=== PATIENT | female | born 1980 | race Caucasian/White ===

== ENCOUNTER → 2021-01-24 | Emergency (ER) | payer BC ==
[~2021-01-24] VITALS: Ht 152.4 cm; Wt 59.7 kg
[~2021-01-24] MED LIST: DOXY-1 PO
[2021-01-24 11:36] VITALS: BP 121/84
== END | disposition left against medical advice (07) ==
LOC: ER 11:17
DX: J34.0 Abscess, furuncle and carbuncle of nose (principal); J32.9 Chronic sinusitis, unspecified; J34.89 Other specified disorders of nose and nasal sinuses; Z79.2 Long term (current) use of antibiotics
CPT/HCPCS: 10160; 99284

== ENCOUNTER 2024-10-01 20:27 | Emergency (ER) | payer BC ==
[~2024-10-01] VITALS: Ht 165.1 cm; Wt 61.4 kg
[2024-10-01 21:18] LABS: BASOPHILS # (AUTO) 0.1 X10'3 (0-0.2); BASOPHILS % (AUTO) 0.7 % (0-1); EOSINOPHILS # (AUTO) 0.1 X10'3 (0-0.9); EOSINOPHILS % (AUTO) 0.9 % (0-6); HEMATOCRIT 39.8 % (35.0-45.0); HEMOGLOBIN 13.4 g/dl (12.0-16.0); LYMPHOCYTES # (AUTO) 3.1 X10'3 (1.1-4.8); LYMPHOCYTES % (AUTO) 32.7 % (21-51); MEAN CORPUSCULAR HEMOGLOBIN 29.9 PG (27.0-31.0); MEAN CORPUSCULAR HGB CONC 33.7 g/dL (33.0-36.5); MEAN CORPUSCULAR VOLUME 88.7 FL (78-98); MEAN PLATELET VOLUME 9.1 FL (7.4-10.4); MONOCYTES # (AUTO) 0.6 X10'3 (0-0.9); MONOCYTES % (AUTO) 6.7 % (2-12); NEUTROPHILS # (AUTO) 5.7 X10'3 (1.8-7.7); PLATELET COUNT 187 X10'3 (140-440); RED BLOOD COUNT 4.49 X10'6 (4.20-5.60); RED CELL DISTRIBUTION WIDTH 13.4 % (11.5-14.5); WHITE BLOOD COUNT 9.6 X10'3 (4.5-11.0)
[2024-10-01] MEDS ORDERED: PROP10TA10 PO (21:31)
--- NOTE | 2024-10-01 21:31 | Physician Documentation ---
History of Present Illness ~ Chief Complaint: General Stated Complaint: "NOT FEELING RIGHT" Time Seen by MD: 20:48 Mode of Arrival: POV HPI This is a 44-year-old female with a history of tachycardia presents to the ED with ongoing concerns. She states she has been seen at 's office and evaluated for tachycardia. He was prescribed propranolol to help with her symptoms. However she says that she recently had a child and has been afraid to take the medication. She also adds that she was reassured at the office sided safe to take. She adds that she does not want to take a lot of medication. She also states that she is aware that she may have anxiety. Or concerns or revolving around the fact that she has a family history of cardiac problems. She however has never been diagnosed with a any true cardiac problems that required ongoing treat Day of Onset: Oct 01, 2024 Medication Reconciliation Allergies: Uncoded Allergies: EYE GTTS: ABX WITH STEROID (Allergy, Unknown, BLURED VISION AND HIVES, 01/24/21) Scheduled Propranolol Hcl* (Inderal*), 1 TAB PO Q12H Review of Systems All Other Systems at this time: Reviewed and Negative ROS As stated above in the HPI, otherwise all systems are reviewed and negative. Physical Exam Vital Signs: Temperature: 98.7, Source: Oral, Heart Rate: 78, Respiratory Rate: 16, BP: 155/88, Pulse Oximetry: 99, Weight: 61.360 Physical Exam General: Alert, no apparent distress. Respiratory: Lungs clear, no respiratory distress. Chest: No accessory muscle use. Neurologic: Oriented x4. Psychiatric: Normal mood and affect. Skin: Normal color, warm and dry. No edema, no ecchymosis. Progress Results/Orders Results/Orders Completed Orders - CHUY CHILEL NP Urinalysis, Cult If Indicated (10/01/24 20:52) Hcg, Ur Ql (10/01/24 20:52) Cbc/Diff (10/01/24 20:52) BMP (10/01/24 20:52) Lipase (10/01/24 20:52) CMP (10/01/24 20:52) Vital Signs 10/01/24 10/01/24 10/01/24 20:34 20:50 21:51 Temp 98.7 98.5 Pulse 78 82 Resp 16 16 16 B/P (MAP) 155/88 133/69 Pulse Ox 99 99 Laboratory Tests Test 10/01/24 21:09 10/01/24 21:40 White Blood Count 9.6 Red Blood Count 4.49 Hemoglobin 13.4 Hematocrit 39.8 Mean Corpuscular Volume 88.7 Mean Corpuscular Hemoglobin 29.9 Mean Corpuscular Hemoglobin Concent 33.7 Red Cell Distribution Width 13.4 Platelet Count 187 Mean Platelet Volume 9.1 Neutrophils (%) (Auto) 59.0 Lymphocytes (%) (Auto) 32.7 Monocytes (%) (Auto) 6.7 Eosinophils (%) (Auto) 0.9 Basophils (%) (Auto) 0.7 Neutrophils # (Auto) 5.7 Lymphocytes # (Auto) 3.1 Monocytes # (Auto) 0.6 Eosinophils # (Auto) 0.1 Basophils # (Auto) 0.1 CBC Comment Sodium Level 136 Potassium Level 3.5 Chloride Level 102 Carbon Dioxide Level 29.6 Anion Gap 4 L Blood Urea Nitrogen 14 Creatinine 1.02 H Estimated GFR/1.73 m2 59 BUN/Creatinine Ratio 13.7 Glucose Level 96 Calcium Level 8.8 Total Bilirubin 0.5 Aspartate Amino Transf (AST/SGOT) 15 Alanine Aminotransferase (ALT/SGPT) 25 Alkaline Phosphatase 68 Total Protein 6.8 Albumin 3.6 Globulin 3.2 Albumin/Globulin Ratio 1.1 Lipase 50 Chemistry Comments Urine Specimen Description Cln catch midstream Urine Color Yellow Urine Clarity Clear Urine pH 7.0 Urine Specific [place] 1.010 Urine Protein Negative Urine Glucose (UA) Negative Urine Ketones Negative Urine Occult Blood Negative Urine Nitrite Negative Urine Bilirubin Negative Urine Urobilinogen 0.2 Urine Leukocyte Esterase Negative Urine Culture Indicated Not ind Volume Urine Centrifuged 10 ml Urine HCG, Qualitative Negative Urine Comment Medical Decision Making Findings This 44-year-old presents with signs or symptoms of anxiety and depression. Had discussed these symptoms with the patient and explained that the palpitation she occasionally feels,can lead to increased anxiety. Discussed the possibility of going on an SSRI to help with her psychiatric symptoms. She did not visually present interested in this notion I suggested exercise and to follow up with her primary care at [facility] I also told her I would represcribed her some propranolol Differential Dx:Considerations: Include: angina / HI, atrial dysrhythmia, atrial fibrillation, atrial flutter, MAT, PACs, PSVT, sinus tachycardia, WPW, 1st degree AV block, 2nd degree AVB-type 1, 2nd degree AVB-type 2, 3rd degree AV block, PVCs, torsades de pointes, ventricular fibrillation, ventricular tachycardia, other Departure Disposition: 01 HOME / SELF CARE / HOMELESS Impression: Primary Impression: Anxiety about health Condition: Stable Discharge Instructions: Generalized Anxiety Disorder, Adult Referrals: NO PRIMARY CARE PROVIDER (PCP) Prescriptions Propranolol Hcl* (Inderal*) 10 Mg Tablet 1 TAB PO Q12H for 30 Days, #60 TAB Prov: CHUY CHILEL NP 10/01/24 Education Educated: Patient Educated regarding: diagnosis Signature Scribe Signature: t Attestation: Scribed for Chuy Chilel [employer] by Chuy Vargas NP . 10/01/24 23:39 CHUY CHILEL NP Oct 01, 2024 21:31
[2024-10-01 21:34] LABS: ALANINE AMINOTRANSFERASE 25 U/L (12-78); ALBUMIN 3.6 G/DL (3.4-5.0); ALBUMIN/GLOBULIN RATIO 1.1 (1.1-1.5); ALKALINE PHOSPHATASE 68 IU/L (46-116); ANION GAP 4 (8-16); ASPARTATE AMINO TRANSFERASE 15 U/L (10-37); BILIRUBIN,TOTAL 0.5 MG/DL (0.1-1.0); BLOOD UREA NITROGEN 14 MG/DL (7-18); BUN/CREATININE RATIO 13.7 (10.0-20.0); CALCIUM 8.8 MG/DL (8.5-10.1); CHLORIDE 102 MMOL/L (99-107); CREATININE 1.02 MG/DL (0.40-0.90); GLUCOSE 96 MG/DL (70-104); LIPASE 50 U/L (16-77); POTASSIUM 3.5 MMOL/L (3.5-5.1); SODIUM 136 MMOL/L (135-145); TOTAL CARBON DIOXIDE 29.6 MMOL/L (24-32); TOTAL PROTEIN 6.8 G/DL (6.4-8.2); eCRCL 65 ML/MIN; eGFR 59 ML/MIN
[2024-10-01 21:51] VITALS: BP 133/69; PULSE 82; RESP 16; TEMP 98.5; O2SAT 99
[2024-10-01 22:13] LABS: BILIRUBIN,URINE NEGATIVE (Neg); CLARITY,URINE CLEAR (Clear); COLOR,URINE YELLOW (Yellow); GLUCOSE, URINE NEGATIVE (Neg); KETONES,URINE NEGATIVE (Neg); LEUKOCYTE ESTERASE ,URINE NEGATIVE (Neg); NITRITES, URINE NEGATIVE (Neg); OCCULT BLOOD,URINE NEGATIVE (Neg); PROTEIN,URINE NEGATIVE (Neg); UROBILINOGEN,URINE 0.2 E.U/dL (0.2-1.0)
[2024-10-01 22:14] LABS: UA COLLECTION TYPE CLN CATCH MIDSTREAM; URINE HCG NEGATIVE (NEG)
--- NOTE | 2024-10-02 06:41 | ELECTROCARDIOGRAPH REPORT ---
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 Devante Devlin Measurements Intervals [place] Rate: 82 P: 53 NH: 136 QRS: 36 QRSD: 98 T: 35 QT: 367 QTc: 429 Interpretive Statements Sinus rhythm Electronically Signed On 10-02-2024 18:47:[address] Devante Devlin Please click the below link to view image of tracing.
== END 2024-10-01 21:55 | disposition home or self-care (01) ==
LOC: ER 20:29
DX: F41.9 Anxiety disorder, unspecified (principal)
CPT/HCPCS: 36415; 80053; 81003; 81025; 83690; 85025; 93005; 99284